=== PATIENT | female | born 1975 | race Caucasian/White ===

== ENCOUNTER 2019-04-25 19:27 | Emergency (ER) | payer BC ==
[~2019-04-25] VITALS: Ht 162.6 cm; Wt 88.5 kg
--- NOTE | 2019-04-25 20:08 | NUR ---
Pt out of ER for CT.
[2019-04-25] MEDS: HYDROCODONE/APAP 5-325MG TABLET PO ONE (20:16)
[2019-04-25] MEDS ORDERED: HYDROCODONE/APAP 5-325MG TABLET ONE (20:19)
--- NOTE | 2019-04-25 20:25 | NUR ---
Pt back to ER from CT.
--- NOTE | 2019-04-25 22:00 | NUR ---
Patient discharged to home in stable conditon. Written and verbal after care instructions given. Patient verbalizes understanding of instructions.
[2019-04-25 22:30] VITALS: BP 95/64
== END 2019-04-25 22:33 | disposition home or self-care (01) ==
LOC: ER 19:27
DX: S06.0X0A Concussion without loss of consciousness, initial encounter (principal); S80.02XA Contusion of left knee, initial encounter; W18.39XA Other fall on same level, initial encounter; Y93.89 Activity, other specified; Y92.89 Other specified places as the place of occurrence of the external cause; Y99.8 Other external cause status
CPT/HCPCS: 70450; 72125; A4663